=== PATIENT | female | born 2000 | race Caucasian/White ===

== ENCOUNTER 2021-11-10 02:22 | Emergency (ER) | payer MEDICAID ==
[~2021-11-10] VITALS: Ht 157.5 cm; Wt 61.2 kg
[2021-11-10 02:47] VITALS: BP_SYST 126
[2021-11-10] MEDS ORDERED: LIDOCAINE 1%, 20 ML MDV 20 ML ONE (03:49)
[2021-11-10] MEDS ORDERED: IBUP-1969 PO (04:35)
[2021-11-10] MEDS ORDERED: SULF1TAB48 PO (04:35)
[2021-11-10 04:54] VITALS: BP_SYST 113
== END 2021-11-10 04:03 | disposition home or self-care (01) ==
LOC: SED 02:22
DX: L60.0 Ingrowing nail (principal); L03.031 Cellulitis of right toe
CPT/HCPCS: 99283; J2001; 36415